=== PATIENT | male | born 1975 | race Asian ===

== ENCOUNTER 2024-06-01 18:34 | Emergency (ER) | payer MEDICARE, SELFPAY ==
[2024-06-01 18:44] VITALS: BP 181/94; PULSE 75; RESP 16; TEMP 36.4; O2SAT 100
[2024-06-01 18:51] VITALS: BP 124/68; PULSE 132; TEMP 36.6; O2SAT 97
[2024-06-01 21:05] VITALS: BP 164/92; PULSE 73; RESP 17; TEMP 36.4; O2SAT 100
[2024-06-01 21:15] VITALS: O2SAT 100
--- NOTE | 2024-06-02 | ED.URI ---
HPI - URI/Sore Throat General Chief Complaint: Upper Respiratory Infection Stated Complaint: wants TX for COVID Time Seen by Provider: 06/01/24 23:15 History of Present Illness HPI Narrative: Patient is a 48-year-old male who presents to the ER after taking a COVID test at home and it was positive. He reports his symptoms started approximately 3 days ago. His symptoms include scratchy throat, headache, sneezing, congestion, coughing. Patient denies any fevers, shortness of breath, or wheezing. He denies any pertinent medical history related to this ER visit. Patient comes to the ER requesting Paxlovid. Related Data Allergies Allergy/AdvReac Type Severity Reaction Status Date / Time lactose Allergy Unknown Stomach Verified 06/01/24 21:07 Pain ANESTHESIA AdvReac Unknown VOMITING Uncoded 05/27/24 13:14 Review of Systems Review of Systems: All systems reviewed & are unremarkable except as noted in HPI and below PMFSH Family History Family History Father Diabetes mellitus Social History Social History Smoking status: Never smoker Second hand tobacco smoke exposure: No Alcohol intake: never Substance use: never Substance use type: does not use Lack of Transportation: No Lack of Food: Never True Current Housing: Decline to Answer Concerned About Future Housing: Decline to Answer Difficulty Paying Gas/Electric Bills: No Difficulty Paying for Meds: No Currently Unemployed: No Education: Bachelor's Degree Difficulty w/ Childcare or Family Care: No Living arrangements: with family Occupation/Education: unemployed Additional occupation/education comments: he is on disability Gender identity (if verbalized by the patient): Male Spiritual care concerns: No Agree to blood products: Yes Exam Narrative: GENERAL: Well appearing, well-nourished, non-toxic, in no acute distress. HEAD: Normocephalic, atraumatic. NECK: Supple. No adenopathy, no masses. RESPIRATORY: Airway patent, respirations nonlabored. Clear to auscultation bilaterally, no rales, rhonchi, wheezing. CARDIOVASCULAR: Regular rate and rhythm without murmurs, rubs, or gallops. Peripheral pulses 2+ and equal bilaterally. ABDOMINAL: Soft, nontender, nondistended, no hepatosplenomegaly. Normoactive BS. MUSCULOSKELETAL: Moves all extremities. Strength/ROM intact without gross deformities. SKIN: Warm, dry, normal color. No rashes. NEURO: A&O X3. Speech clear. Cranial nerves II-XII grossly intact. No ataxic movements. PSYCHIATRIC: Appropriate mood and affect. Normal interaction. Course Vital Signs Vital signs: Vital Signs Temperature 36.4 C 06/01/24 18:44 Pulse Rate 75 06/01/24 18:44 Respiratory Rate 16 06/01/24 18:44 Blood Pressure 181/94 H 06/01/24 18:44 Pulse Oximetry 100 06/01/24 18:44 Oxygen Delivery Room Air 06/01/24 18:44 Temperature 36.4 C 06/01/24 21:05 Pulse Rate 73 06/01/24 21:05 Respiratory Rate 17 06/01/24 21:05 Blood Pressure 164/92 H 06/01/24 21:05 Pulse Oximetry 100 06/01/24 21:15 Oxygen Delivery Room Air 06/01/24 21:15 MDM - URI/Sore Throat MDM Narrative Medical decision making narrative: Patient is a 48-year-old male who presents to the ER after taking a COVID test at home and it was positive. He reports his symptoms started approximately 3 days ago. His symptoms include scratchy throat, headache, sneezing, congestion, coughing. Patient denies any fevers, shortness of breath, or wheezing. He denies any pertinent medical history related to this ER visit. Patient comes to the ER requesting Paxlovid. Labs Ordered: COVID/flu/RSV swab Imaging Ordered: None needed Results: COVID/flu/RSV negative Diagnosis: URI Consults: None needed Patient Education/Shared MDM: Patient offered a chest x-ray but he declined saying ?I do not think my symptoms are that bad. Since patient's symptoms started within the 5 day window for Paxlovid administration, he is a candidate but he needs a positive COVID test here in the ER. Patient verbalizes understanding and is in agreement with plan. 0100-patient's COVID test was negative so he will not get a prescription for Paxlovid. Instead, prescriptions will be placed for steroids and Flonase. Patient is in agreement with current treatment plan. All questions answered. Vital signs stable at time of discharge. Differential Diagnosis Differential diagnosis: Likely upper respiratory infection, viral infection, bronchitis, influenza, pharyngitis and other (COVID, RSV) Lab Data Attestation: I reviewed the patient's lab results. Labs: Lab Results 06/02/24 Range/Units 00:14 Influenza A (RT-PCR) Negative (Negative) Influenza B (RT-PCR) Negative (Negative) RSV (RT-PCR) Negative (Negative) SARS-CoV-2 RNA (RT-PCR) Negative (Negative) Discharge Plan Discharge Clinical Impression: Upper respiratory infection Patient Disposition: Home, Self-Care Condition: Stable Instructions: Antibiotic Form, COVID-19 (Coronavirus Disease 2019) (ED) Additional Instructions: Please return to the ER with an worsening symptoms. Follow-up with primary care provider in the next 2-3 days. Take all medications as prescribed. Prescriptions: New methylprednisolone [Methylpred DP] 4 mg tablets,dose pack See Rx Instructions .ROUTE .COMPLEX Qty: 21 0RF Rx Instructions: for 6 days fluticasone propionate [Flonase Allergy Relief] 50 mcg/actuation spray,suspension 1 spray intranasal BID Qty: 16 0RF Rx Instructions: administer into each nostril No Action minoxidil [Rogaine Extra Strength for Men] 5 % solution 1 ml topical BID Qty: 120 3RF lisinopril 40 mg tablet 40 mg PO DAILY Qty: 90 1RF hydrochlorothiazide 25 mg tablet 25 mg PO DAILY Qty: 90 1RF amlodipine 5 mg tablet 5 mg PO DAILY Qty: 90 1RF Follow-up/Referrals: Apolinar Decker MD [Primary Care Provider] -
[2024-06-02 01:09] LABS: Influenza A QL RT-PCR Negative (Negative); Influenza B QL RT-PCR Negative (Negative); RSV RNA, RT-PCR Negative (Negative); SARS-CoV-2 RNA PCR Negative (Negative)
[2024-06-02 01:22] VITALS: BP 142/94; PULSE 61; RESP 15; O2SAT 98
== END 2024-06-02 01:24 | disposition home or self-care (01) ==
LOC: ANHED 06-02 00:51
PROVIDERS: Emergency Provider Registered Nurse; PCP Family Medicine Adolescent Medicine
DX: J06.9 Acute upper respiratory infection, unspecified (principal); Z20.822 Contact with and (suspected) exposure to COVID-19
CPT/HCPCS: 87637; 99283

== ENCOUNTER 2024-08-15 16:21 | Outpatient (CLI) | payer MEDICARE, OTHER, SELFPAY ==
--- NOTE | ~2024-08-15 | XR_ITS ---
EXAMINATION: XR foot LT 2V DATE: 08/15/2024 16:46 INDICATION: Left foot pain. TECHNIQUE: 2 views of left foot were obtained. COMPARISON: Left foot radiographs 11/19/2014 FINDINGS: The first-fourth rays are absent. The cuneiforms and navicular absent. 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 Talus is deformed. No acute fracture. There is moderate osteoarthritis of fif th tarsometatarsal joint. IMPRESSION: 1. Congenital deformities of the foot. 2. Moderate osteoarthritis of fifth tarsometatarsal joint. Reviewed, dictated and finalized at location A. [employer]
== END 2024-08-15 16:22 | disposition home or self-care (01) ==
PROVIDERS: PCP Family Medicine Adolescent Medicine; Visit Provider Nurse Practitioner Family
DX: Q66.89 Other specified congenital deformities of feet (principal); M19.072 Primary osteoarthritis, left ankle and foot
CPT/HCPCS: 73620